=== PATIENT | female | born 1955 | race Asian ===

== ENCOUNTER 2016-09-11 05:54 | Day surgery (SDC) | payer MEDICARE ==
[2016-09-11] MEDS ORDERED: WATER FOR IRRIG STERILE IR ONE (07:01)
[2016-09-11] MEDS ORDERED: INFANTS' GAS RELIEF PO ONE (07:02)
[2016-09-11] MEDS ORDERED: DIPRIVAN 10 MG/ML IV ONE ×2 (07:27)
[2016-09-11] MEDS ORDERED: WATER FOR IRRIG STERILE ONE (07:30)
[2016-09-11] MEDS ORDERED: XYLOCAINE MPF 2% ONE (07:36)
[2016-09-11] MEDS ORDERED: NACL 0.9% 1000 ML 1,000 ML IV SCH (08:00)
[2016-09-11 08:08] VITALS: BP 120/66
--- NOTE | 2016-09-11 08:50 | Anesthesia Consultation ---
Anesthesia Consult and Med Hx Date of service: 09/11/16 - Airway Anesthetic Teeth Evaluation: Poor (missing many lower teeth), Edentulous (upper only) ROM Head & Neck: Adequate Mental/Hyoid Distance: Adequate Mallampati Class: Class II Intubation Access Assessment: Probably Good - Pulmonary Exam CTA: Yes - Cardiac Exam Cardiac Exam: RRR - Pre-Operative Health Status ASA Pre-Surgery Classification: ASA3 Proposed Anesthetic Plan: MAC - Pulmonary Hx Smoking: Yes (current smoker) - Cardiovascular System Hx Hypertension: Yes Hx Heart Murmur: Yes - Central Nervous System CVA: Yes - Gastrointestinal Hx Gastroesophageal Reflux Disease: No - Endocrine Hx Non-Insulin Dependent Diabetes: Yes - Hematic Hx Anemia: No Hx Sickle Cell Disease: No - Other Systems Hx Alcohol Use: No Hx Substance Use: No Hx Cancer: No Hx Obesity: No - Additional Comments Anesthesia Medical History Comments: Patient is "special needs" due to stroke, able to answer questions by nodding head, but not willing to speak. Her nephew is POA.
--- NOTE | 2016-09-11 08:51 | Anesthesia Day of Surgery ---
Anesthesia Day of Surgery - Day of Surgery Patient Examined: Yes Patient H&P Reviewed: Yes Patient is NPO: Yes
--- NOTE | 2016-09-11 09:42 | Short Stay Summary ---
Short Stay Documentation - Allergies and Medications Current Medications: Allergies No Known Allergies Allergy (Verified 09/10/16 16:16) Home Medications Medication Instructions Recorded Confirmed Last Taken Type Benztropine 1 tab PO DAILY 09/10/16 09/10/16 09/10/16 History Hydrochlorothiazide 1 tab PO DAILY 09/10/16 09/10/16 09/10/16 History Lisinopril 1 tab PO DAILY 09/10/16 09/11/16 09/11/16 History Simvastatin 1 tab PO DAILY 09/10/16 09/10/16 09/10/16 History amLODIPine 1 tab PO DAILY 09/10/16 09/10/16 09/10/16 History metFORMIN 500 mg PO DAILY 09/10/16 09/10/16 09/10/16 History traZODone 1 tab PO DAILY 09/10/16 09/10/16 09/10/16 History Active Medications Sodium Chloride (Nacl 0.9% 1000 Ml) 1,000 mls @ 50 mls/hr IV DIRECT YISSEL Last Admin: 09/11/16 07:39 Dose: 50 mls/hr - Brief post op/procedure progress note Date of procedure: 09/11/16 Pre-op diagnosis: Colon cancer screening Post-op diagnosis: same Procedure: incomplete colonoscopy due to a poor prep Anesthesia: MAC Findings: as above Surgeon: GUILLERMO POON Estimated blood loss: none Pathology: none Condition: stable - Disposition Condition at discharge: Stable Disposition: DISCHARGED TO HOME OR SELFCARE Short Stay Discharge Plan Activity: no restrictions Weight Bearing Status: Full Weight Bearing Diet: regular Follow up with: PAM KERNS JR, MD [Primary Care Provider] - 7 Days
--- NOTE | 2016-09-11 09:44 | Post Anesthesia Evaluation ---
- Post Anesthesia Evaluation Patient Participated: Yes Airway Patent: Yes Stable Respiratory Function: Yes Nausea/Vomiting: No Temp > 96.8F: Yes Pain Manageable: Yes Adequeate Hydration: Yes Anesthesia Complications: No Block Receding Appropriately: Not Applicable Patient on Ventilator: No
== END 2016-09-11 05:55 | disposition home or self-care (01) ==
LOC: GIO 05:54
PROVIDERS: ATTEND Internal Medicine Gastroenterology
DX: Z12.11 Encounter for screening for malignant neoplasm of colon (principal); F31.9 Bipolar disorder, unspecified; F03.90 Unspecified dementia, unspecified severity, without behavioral disturbance, psychotic disturbance, mood disturbance, and anxiety; E11.9 Type 2 diabetes mellitus without complications; F17.210 Nicotine dependence, cigarettes, uncomplicated; I10 Essential (primary) hypertension; Z86.73 Personal history of transient ischemic attack (TIA), and cerebral infarction without residual deficits
CPT/HCPCS: 82962; G0121; J2704; J7030